=== PATIENT | female | born 1995 | race Caucasian/White ===

== ENCOUNTER 2020-06-06 21:54 | Emergency (ER) | payer OTHER ==
[~2020-06-06] VITALS: Ht 172.7 cm; Wt 64.0 kg
[2020-06-06 22:01] VITALS: Ht 172.7 cm; Wt 64.0 kg
[2020-06-06 23:51] VITALS: BP 110/36
== END 2020-06-06 23:51 | disposition home or self-care (01) ==
LOC: ED 21:54
DX: N39.0 Urinary tract infection, site not specified (principal)

== ENCOUNTER 2020-07-18 23:10 | Emergency (ER) | payer OTHER, SELFPAY ==
[~2020-07-18] VITALS: Ht 172.7 cm; Wt 61.2 kg
[2020-07-18 23:11] VITALS: BP 99/56; Ht 172.7 cm; Wt 61.2 kg
== END 2020-07-19 00:45 | disposition home or self-care (01) ==
LOC: ED 23:10
DX: B34.9 Viral infection, unspecified (principal); R53.83 Other fatigue; R51.9 Headache, unspecified; Z20.828 Contact with and (suspected) exposure to other viral communicable diseases
CPT/HCPCS: U0003